=== PATIENT | male | born 1985 | race African-American/Black ===

== ENCOUNTER 2017-02-19 14:23 | Emergency (ER) | payer MEDICAID ==
[~2017-02-19] VITALS: Ht 180.3 cm; Wt 84.0 kg
[2017-02-19 14:26] VITALS: Ht 180.3 cm; Wt 84.0 kg
--- NOTE | 2017-02-19 14:57 | QN ---
Documentation Comment Medical screening exam initiated as the patient arrived via ambulance. TAL MORRIS MD Feb 19, 2017 14:57
[2017-02-19] MEDS ORDERED: LORAZEPAM 1 MG TAB PO ONE (16:00)
--- NOTE | 2017-02-19 16:47 | ERD ---
ER Documentation Chief Complaint Date/Time DATE: 02/19/17 TIME: 16:46 Chief Complaint bib ra for anxiety , crystal meth use last night , denies cp , no sob HPI Patient is a 31-year-old male with no medical problems who presents saying that he used crystal meth. He was brought in by ambulance. He says that he has been using crystal meth off and on for the past 4 years. He said that he wants a letter please note that he is using. He feels anxious. His last use was today. Upon review of old medical records this is the patient's first visit to the emergency department. Review of the emergency department information exchange is negative. The patient says that he has a doctor at [facility]. ROS All systems reviewed and are negative except as per history of present illness. Allergies Allergies: Coded Allergies: No Known Allergy (Unverified , 02/19/17) PMhx/Soc Medical and Surgical Hx: pt denies Medical Hx, pt denies Surgical Hx Hx Alcohol Use: No Hx Substance Use: Yes (meth use ) Hx Tobacco Use: No Smoking Status: Current every day smoker FmHx Family History: diabetes Physical Exam Vitals Vital Signs Date Time Temp Pulse Resp B/P Pulse Ox O2 Delivery O2 Flow Rate FiO2 02/19/17 14:26 98.0 90 18 160/98 100 Physical Exam Const: No acute distress Head: Atraumatic Eyes: Normal Conjunctiva ENT: Normal External Ears, Nose and Mouth. Neck: Full range of motion..~ No meningismus. Resp: Clear to auscultation bilaterally Cardio: Regular rate and rhythm, no murmurs Abd: Soft, non tender, non distended. Normal bowel sounds Skin: No petechiae or rashes Back: No midline or flank tenderness Ext: No cyanosis, or edema Neur: Awake Psych: Anxious but no suicidal or homicidal ideation Results 24 hrs Current Medications Medications (Trade) Dose Ordered Sig/Adriel Route PRN Reason Start Time Stop Time Status Last Admin Dose Admin Lorazepam (Ativan) 1 mg ONCE ONCE PO 02/19/17 16:00 02/19/17 16:00 DC Procedures/MDM Smoking Cessation Therapy: Pt. was lectured for greater than 3 minutes on the health risks of continued smoking and the benefits of cessation. Patient is a 31-year-old male who presents with methamphetamine use. He has no indication for a 5150 hold at this time. The patient will be discharged and was offered a list of treatment centers for methamphetamine abuse. The patient can return for any worsening symptoms. Departure Diagnosis: Primary Impression: Amphetamine abuse Additional Impression: Anxiety attack Condition: Fair Patient Instructions: Understanding Methamphetamine Abuse and Addiction, Panic Attack Referrals: Treatment centers Additional Instructions: SPECIALIST: YOU HAVE A MEDICAL CONDITION WHICH REQUIRES YOU TO SEE A SPECIALIST WITHIN THE NEXT 1-2 DAYS. PLEASE FOLLOW UP WITH YOUR PRIMARY PHYSICIAN FOR REFFERAL.IF YOU DO NOT HAVE A PRIMARY CARE PHYSICIAN AND/OR YOU CAN NOT AFFORD TO SEE A PHYSICIAN THE FOLLOWING RESOURCES HAVE BEEN SUPPLIED TO YOU. IT IS YOUR RESPONSIBILITY TO BE SEEN BY THE SPECIALIST TAL MORRIS MD Feb 19, 2017 16:47
== END 2017-02-19 16:48 | disposition home or self-care (01) ==
LOC: E/R 14:23
DX: F15.10 Other stimulant abuse, uncomplicated (principal); F17.210 Nicotine dependence, cigarettes, uncomplicated
CPT/HCPCS: 99282

== ENCOUNTER 2017-02-19 16:34 | Emergency (ER) | payer MEDICAID ==
[~2017-02-19] VITALS: Ht 177.8 cm; Wt 90.0 kg
[2017-02-19 16:43] VITALS: Ht 177.8 cm; Wt 90.0 kg
[2017-02-19 16:56] LABS: ADD SCAN DIFF NO
[2017-02-19 16:58] LABS: BASOPHILS % 0.1 % (0.0-2.0); EOSINOPHILS % 0.3 % (0.0-7.0); HEMATOCRIT 42.9 % (42.0-52.0); HEMOGLOBIN 14.8 g/dl (14.0-18.0); LYMPHOCYTES # 2.7 10^3/ul (0.8-2.9); LYMPHOCYTES % 36.7 % (15.0-51.0); MEAN CORPUSCULAR HEMOGLOBIN 30.5 pg (29.0-33.0); MEAN CORPUSCULAR HGB CONC 34.5 g/dl (32.0-37.0); MEAN CORPUSCULAR VOLUME 88.3 fl (82.0-101.0); MONOCYTE # 0.7 10^3/ul (0.3-0.9); MONOCYTES % 9.8 % (0.0-11.0); NEUTROPHIL # 3.9 10^3/ul (1.6-7.5); NEUTROPHILS % 52.8 % (39.0-77.0); PLATELET COUNT 296 10^3/UL (140-415); RED BLOOD COUNT 4.86 10^6/ul (4.70-6.10); RED CELL DISTRIBUTION WIDTH 11.8 % (11.5-14.5); WHITE BLOOD COUNT 7.4 10^3/ul (4.8-10.8)
[2017-02-19 17:14] LABS: ALBUMIN 4.5 g/dl (3.3-4.9); CHLORIDE 98 mmol/L (97-110)
[2017-02-19 17:15] LABS: POTASSIUM 3.3 mmol/L (3.5-5.1); SODIUM 138 mmol/L (135-144)
[2017-02-19 17:17] LABS: ALBUMIN/GLOBULIN RATIO 1.21; ANION GAP 17 (8-16); BILIRUBIN,INDIRECT 0.4 mg/dl (0-1.1); BILIRUBIN,TOTAL 0.4 mg/dl (0.2-1.3); CARBON DIOXIDE 26 mmol/L (21-31); CREATININE 0.89 mg/dl (0.61-1.24); TOTAL PROTEIN 8.2 g/dl (6.1-8.1)
[2017-02-19 17:18] LABS: ALANINE AMINOTRANSFERASE 18 IU/L (13-69); ALKALINE PHOSPHATASE 54 IU/L (42-121); ASPARTATE AMINO TRANSFERASE 21 IU/L (15-46); BLOOD UREA NITROGEN 9 mg/dl (7-20); CALCIUM 9.3 mg/dl (8.4-10.2); GLUCOSE 99 mg/dl (70-220)
[2017-02-19 17:25] LABS: ACETAMINOPHEN < 10.0 ug/ml (10.0-30.0); ETHANOL < 10.0 mg/dl; SALICYLATE < 1.0 mg/dl (5.0-30.0)
[2017-02-19 17:50] LABS: ADD UMIC NO; URINE BILIRUBIN (Dip) NEGATIVE (NEGATIVE); URINE BLOOD (Dip) NEGATIVE (NEGATIVE); URINE COLOR LT. YELLOW (YELLOW); URINE GLUCOSE (Dip) NEGATIVE (NEGATIVE); URINE KETONES (Dip) NEGATIVE (NEGATIVE); URINE LEUKOCYTE ESTERASE (Dip) NEGATIVE (NEGATIVE); URINE NITRITE (Dip) NEGATIVE (NEGATIVE); URINE TOTAL PROTEIN (Dip) NEGATIVE (NEGATIVE); URINE UROBILINOGEN (Dip) 0.2 E.U./dL (0.1-1.0)
[2017-02-19 18:04] LABS: CANNABINOIDS Negative (NEGATIVE)
[2017-02-19 19:32] LABS: BARBITURATES NEGATIVE (NEGATIVE); BENZODIAZEPINES NEGATIVE (NEGATIVE); COCAINE NEGATIVE (NEGATIVE); OPIATES NEGATIVE (NEGATIVE)
--- NOTE | 2017-02-19 21:37 | ERA ---
ER Documentation Chief Complaint Date/Time DATE: 02/19/17 TIME: 21:35 Chief Complaint PSYCH EVAL PT NOT RESPONDING OR ANSWERING QUESTIONS HPI Patient is a 31-year-old male who presents as a code green. He was just seen by myself prior to discharge. He was found wandering the hallway and scared members of the dietary team. He was now confused and not answering questions. He was recently seen for methamphetamine abuse. This is his second visit to the ER today. He has never been to the emergency department prior. Please note the history and physical exam is limited secondary to the patient's ability to give a history at this time. ROS All systems reviewed and are negative except as per history of present illness. Allergies Allergies: Coded Allergies: No Known Allergy (Unverified , 02/19/17) PMhx/Soc Hx Miscellaneous Medical Probl: Yes (UNKNOWN) Hx Alcohol Use: No Hx Substance Use: No Hx Tobacco Use: No Smoking Status: Unknown if ever smoked FmHx Unable to obtain Physical Exam Vitals Vital Signs Date Time Temp Pulse Resp B/P Pulse Ox O2 Delivery O2 Flow Rate FiO2 02/19/17 16:43 98.4 72 18 152/100 99 Physical Exam Const: Confused Head: Atraumatic Eyes: Normal Conjunctiva ENT: Normal External Ears, Nose and Mouth. Neck: Full range of motion..~ No meningismus. Resp: Clear to auscultation bilaterally Cardio: Regular rate and rhythm, no murmurs Abd: Soft, non tender, non distended. Normal bowel sounds Skin: No petechiae or rashes Back: No midline or flank tenderness Ext: No cyanosis, or edema Neur: Awake but not answering questions or following commands Psych: Patient seems anxious and catatonic Result Diagram: 02/19/17 1641 02/19/17 1641 Results 24 hrs Laboratory Tests Test 02/19/17 16:41 02/19/17 17:37 White Blood Count 7.410^3/ul Red Blood Count 4.8610^6/ul Hemoglobin 14.8g/dl Hematocrit 42.9% Mean Corpuscular Volume 88.3fl Mean Corpuscular Hemoglobin 30.5pg Mean Corpuscular Hemoglobin Concent 34.5g/dl Red Cell Distribution Width 11.8% Platelet Count 68434^3/UL Mean Platelet Volume 9.0fl Neutrophils % 52.8% Lymphocytes % 36.7% Monocytes % 9.8% Eosinophils % 0.3% Basophils % 0.1% Nucleated Red Blood Cells % 0.0/100WBC Neutrophils # 3.910^3/ul Lymphocytes # 2.710^3/ul Monocytes # 0.710^3/ul Eosinophils # 0.010^3/ul Basophils # 0.010^3/ul Nucleated Red Blood Cells # 0.010^3/ul Sodium Level 138mmol/L Potassium Level 3.3mmol/L Chloride Level 98mmol/L Carbon Dioxide Level 26mmol/L Anion Gap 17 Blood Urea Nitrogen 9mg/dl Creatinine 0.89mg/dl Glucose Level 99mg/dl Calcium Level 9.3mg/dl Total Bilirubin 0.4mg/dl Direct Bilirubin 0.00mg/dl Indirect Bilirubin 0.4mg/dl Aspartate Amino Transf (AST/SGOT) 21IU/L Alanine Aminotransferase (ALT/SGPT) 18IU/L Alkaline Phosphatase 54IU/L Total Protein 8.2g/dl Albumin 4.5g/dl Globulin 3.70g/dl Albumin/Globulin Ratio 1.21 Salicylates Level < 1.0mg/dl Acetaminophen Level < 10.0ug/ml Ethyl Alcohol Level < 10.0mg/dl Urine Color LT. YELLOW Urine Clarity CLEAR Urine pH 7.5 Urine Specific [place] 1.010 Urine Ketones NEGATIVE Urine Nitrite NEGATIVE Urine Bilirubin NEGATIVE Urine Urobilinogen 0.2 E.U./dL Urine Leukocyte Esterase NEGATIVE Urine Hemoglobin NEGATIVE Urine Glucose NEGATIVE% Urine Total Protein NEGATIVE Urine Opiates Screen NEGATIVE Urine Barbiturates NEGATIVE Urine Amphetamines Screen POSITIVE Urine Benzodiazepines Screen NEGATIVE Urine Cocaine Screen NEGATIVE Urine Cannabinoids Negative Current Medications Medications (Trade) Dose Ordered Sig/Adriel Route PRN Reason Start Time Stop Time Status Last Admin Dose Admin Olanzapine (Zyprexa Zydis) 10 mg QHS ODT 02/20/17 21:00 Procedures/MDM CT head pending at this time. Patient is a 31-year-old male with methamphetamine abuse who presents with psychosis. The patient has been medically cleared with laboratory studies. Her psychiatrist has seen the patient and recommended a 5150 hold. The patient will be given Zyprexa 10 mg nightly which is the recommendation of the psychiatrist. He also recommended 2 mg of Ativan by mouth as needed for sedation. The patient will be transferred by ambulance once a psychiatric bed is found. His urine drug screen is positive for methamphetamines. There is no alcohol, aspirin, or Tylenol ingestion. Critical Care: Time: 35 minutes excluding all billable procedures. Treatments/Evaluations: Close monitoring and treatment of unstable vital signs, cardiorespiratory, and neurologic status, while maintaining tight balance of fluid, respiratory, and cardiac interventions. Departure Diagnosis: Primary Impression: Psychosis Qualified Code: F29 - Psychosis, unspecified psychosis type Additional Impression: Methamphetamine abuse Condition: TAL Reynoso MD Feb 19, 2017 21:37
--- NOTE | 2017-02-19 22:15 | RADRPT ---
PROCEDURE: CT head without Contrast CLINICAL INDICATION: Altered TECHNIQUE: Transaxial images were made through the head on a multi-slice scanner without intraveno us contrast. Coronal and sagittal images were subsequently reformatted. One or more of the following dose reduction techniques were used: - Automated exposure control. - Adjustment of the mA and/or kV according to patient size. - Use of iterative reconstruction technique. Radiation dose: CTDIvol = 44.40 mGy; DLP = 720.23 mGy-cm. COMPARISON: None FINDINGS: Motion artifact degrades multiple images. The calvarium appears intact. The mastoid air cells and paranasal sinuses are well-aerated.. The ventricles are normal in size and there is no midline shift. No intracranial bleed, mass, or extra-axial fluid collection is identified. There is good wood-white matter differentiation. IMPRESSION: 1. Motion artifact degrades multiple images. 2. Unremarkable noncontrast enhance CT scan of the head. Physician Neda Date Time Electronically viewed and signed by Physician Neda on 02/19/2017 22:15 /
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
[2017-02-20 06:02] VITALS: TEMP 98.1
[2017-02-20 07:00] VITALS: BP 117/68; PULSE 77; RESP 16
[2017-02-20] MEDS ORDERED: RITONAVIR 100 MG CAP PO ONE (09:00)
[2017-02-20] MEDS ORDERED: EMTRICITABINE/TENOFOVIR TAB PO ONE (09:00)
[2017-02-20] MEDS ORDERED: DARUNAVIR ETHANOLATE 600 MG TABLET PO ONE (09:00)
[2017-02-20] MEDS ORDERED: OLANZAPINE (ODT) 5 MG TAB ODT SCH (21:00)
== END 2017-02-20 07:00 ==
LOC: E/R 16:34
DX: F15.159 Other stimulant abuse with stimulant-induced psychotic disorder, unspecified (principal)
CPT/HCPCS: 70450; 80053; 80306; 80307; 81003; 85025; Z7610; 36415